=== PATIENT | male | born 1950 | race Two or more races ===

== ENCOUNTER 2017-08-21 18:37 | Inpatient (IN) | payer MEDICARE, MEDICAID ==
[~2017-08-21] VITALS: Ht 180.3 cm; Wt 83.0 kg
--- NOTE | 2017-08-21 18:59 | NUR ---
PATIENT IN ROOM 3. HE IS COOPERATIVE AND NON COMBATIVE AT THIS TIME.
--- NOTE | 2017-08-21 19:09 | NUR ---
Received report from SHAHANA Morales. Assumed care of pt at this time. Pt ambulated to and from with steady gait. Pt biba from facility for medical clearance prior to MHU admission. Pt already on a 5150 for gravely disabled.
[2017-08-21 19:29] LABS: BASOPHILS % (AUTO) 0.6 % (0.0-2.0); EOSINOPHILS # (AUTO) 0.2 K/uL (0.0-0.7); EOSINOPHILS % (AUTO) 3.2 % (0.0-7.0); HEMATOCRIT 47.6 % (40-50); HEMOGLOBIN 16.1 G/DL (14.0-18.0); LYMPHOCYTES # (AUTO) 1.2 K/UL (0.8-4.8); LYMPHOCYTES % (AUTO) 18.7 % (20.5-51.5); MEAN CORPUSCULAR HEMOGLOBIN 30.3 UUG (27.0-31.0); MEAN CORPUSCULAR HGB CONC 34 g/dL (32.0-37.0); MEAN CORPUSCULAR VOLUME 89.7 FL (82.0-92.0); MONOCYTES # (AUTO) 0.7 K/UL (0.1-1.30); MONOCYTES % (AUTO) 11.8 % (0.0-11.0); NEUTROPHILS # (AUTO) 4.2 K/UL (1.8-8.9); NEUTROPHILS % (AUTO) 65.7 % (38.5-71.5); PLATELET COUNT (AUTO) 150 K/UL (150-450); RED BLOOD CELL COUNT(AUTO) 5.31 MIL/UL (4.7-6.1); WHITE BLOOD COUNT (AUTO) 6.3 K/UL (4.0-11.2)
[2017-08-21 19:32] LABS: *BILIRUBIN,URIN NEGATIVE (NEGATIVE); *BLOOD, URINE NEGATIVE (NEGATIVE); *CLARITY,URINE CLEAR (CLEAR); *COLOR,URINE YELLOW (YELLOW); *KETONES,URINE NEGATIVE (NEGATIVE); *PROTEIN,URINE NEGATIVE (NEGATIVE); *UROBILINOGEN,URINE 0.2 E.U./dl (NORMAL); LEUKOCYTE ESTERASE ,URINE NEGATIVE (NEGATIVE); NITRITE, URINE NEGATIVE (NEGATIVE); UGLUCOSE NEGATIVE (NEGATIVE)
[2017-08-21 19:33] LABS: CARBON DIOXIDE 29 mmol/L (21-32); CHLORIDE 104 mmol/L (98-107); CREATININE 1.2 mg/dL (0.6-1.3); GLUCOSE 107 mg/dL (74-106); POTASSIUM 4.1 mmol/L (3.5-5.1); UREA NITROGEN, BLOOD 16 mg/dL (7-18)
[2017-08-21] MEDS ORDERED: ATOR20TA PO (19:35)
[2017-08-21] MEDS ORDERED: METO25TA6 PO (19:35)
[2017-08-21] MEDS ORDERED: FAMO-132 PO (19:35)
[2017-08-21] MEDS ORDERED: RISP0.2515 PO (19:35)
[2017-08-21] MEDS ORDERED: DIVA250T6 PO (19:35)
[2017-08-21] MEDS ORDERED: DONE10TA44 PO (19:35)
[2017-08-21] MEDS ORDERED: FOLI1TAB16 PO (19:35)
[2017-08-21] MEDS ORDERED: TRAZ-144 PO (19:35)
[2017-08-21] MEDS ORDERED: LISI10TA5 PO (19:35)
[2017-08-21 19:38] LABS: ALANINE AMINOTRANSFERASE 18 U/L (16-63); ALKALINE PHOSPHATASE 68 U/L (50-136); ASPARTATE AMINOTRANSFERASE 23 U/L (15-37); BILIRUBIN,DIRECT 0.1 mg/dL (0.0-0.2); BILIRUBIN,TOTAL 0.4 mg/dL (0.2-1.0); TOTAL PROTEIN, SERUM 7.5 g/dL (6.4-8.2)
[2017-08-21 19:50] LABS: ETHANOL < 3 MG/DL (0-0)
[2017-08-21 19:51] LABS: *AMPHETAMINE, URINE NEGATIVE (NEGATIVE); *BARBITURATE, URINE NEGATIVE (NEGATIVE); *CANNABINOID, URINE NEGATIVE (NEGATIVE); *COCCAINE, URINE NEGATIVE (NEGATIVE); *OPIATE, URINE NEGATIVE (NEGATIVE); *PHENCYCLIDINE SCREEN,URINE NEGATIVE (NEGATIVE)
[2017-08-21 19:53] LABS: WBC,URINE NONE SEEN /HPF (0-3)
--- NOTE | 2017-08-21 20:26 | NUR ---
Pt medically cleared for admission pt MHU. Report called to SHAHANA Rodriguez. Preparing to transfer pt to the floor
[2017-08-21] MEDS ORDERED: LORAZEPAM 0.5 MG TABLET PO PRN (21:15)
[2017-08-21] MEDS ORDERED: MAG HYDROX/AL HYDROX/SIMETH 30 ML LIQUID UDC PO PRN (21:15)
[2017-08-21] MEDS ORDERED: ACETAMINOPHEN 325 MG TABLET PO PRN (21:15)
[2017-08-21] MEDS ORDERED: TEMAZEPAM 7.5 MG CAPSULE PO PRN (21:15)
[2017-08-21] MEDS ORDERED: MAGNESIUM HYDROXIDE 30 ML LIQUID UDC PO PRN (21:15)
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
[2017-08-22 00:47] VITALS: BP 144/76
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
--- NOTE | 2017-08-22 07:13 | NUR ---
LEFT MESSAGE TO DR. ALLRED TO RECONCILED MEDICATION.
[2017-08-22 07:30] VITALS: BP 131/83
[2017-08-22] MEDS: METOPROLOL TARTRATE 25 MG TABLET PO SCH ×2 (10:29→20:28)
[2017-08-22] MEDS: FOLIC ACID 1 MG TABLET PO SCH (10:29)
[2017-08-22] MEDS: FAMOTIDINE 20 MG TABLET PO SCH ×2 (10:29→16:38)
[2017-08-22] MEDS: LISINOPRIL 10 MG TABLET PO SCH (10:30)
--- NOTE | 2017-08-22 12:27 | NUR ---
Initial DC Plan: Patient arrived from [facility] [[address] [place] [address]; ]. SW will follow up with facility to confirm patient can return upon discharge. SW will follow up with MD, patient, and patient's family to discuss most appropriate discharge plans. SW will form a safe and proper discharge.
--- NOTE | 2017-08-22 14:50 | NUR ---
PATIENT SEEN AND EXAMINED BY DR HOWARD WITH NEW ORDERS AND NOTED.
[2017-08-22 15:00] VITALS: BP 143/87
[2017-08-22] MEDS: DIVALPROEX 250 MG TABLET.DR PO SCH ×2 (15:02→20:27)
[2017-08-22] MEDS: risperiDONE 1 MG/ML UDC PO SCH ×2 (15:03→20:28)
--- NOTE | 2017-08-22 16:30 | NUR ---
PATIENT IS NOW IN THE DAY ROOM WATCHING THE TV QUIET AND CALM COMPLIANT WITH MEDICATIONS AND CARE.
[2017-08-22] MEDS: ATORVASTATIN 20 MG TABLET PO SCH (20:27)
[2017-08-22 20:46] VITALS: BP 129/90
--- NOTE | 2017-08-23 06:26 | NUR ---
GPS: REMAIN CALM AND COOPERATIVE WITH MEDICATION. SLEPT 8 HRS THROUGH THE NIGHT. CONTINUE PLAN OF CARE.
[2017-08-23 07:30] VITALS: BP 116/82
[2017-08-23] MEDS: METOPROLOL TARTRATE 25 MG TABLET PO SCH ×2 (09:00→20:08)
[2017-08-23] MEDS: DIVALPROEX 250 MG TABLET.DR PO SCH ×2 (09:26→20:07)
[2017-08-23] MEDS: FAMOTIDINE 20 MG TABLET PO SCH ×2 (09:26→18:16)
[2017-08-23] MEDS: FOLIC ACID 1 MG TABLET PO SCH (09:26)
[2017-08-23] MEDS: LISINOPRIL 10 MG TABLET PO SCH (09:26)
[2017-08-23] MEDS: risperiDONE 1 MG/ML UDC PO SCH ×2 (09:27→20:08)
[2017-08-23 15:00] VITALS: BP 127/70
[2017-08-23 19:52] VITALS: BP 108/73
[2017-08-23] MEDS: ATORVASTATIN 20 MG TABLET PO SCH (20:08)
[2017-08-24] MEDS: DIVALPROEX 250 MG TABLET.DR PO SCH ×2 (08:30→21:45)
[2017-08-24] MEDS: FOLIC ACID 1 MG TABLET PO SCH (08:30)
[2017-08-24] MEDS: METOPROLOL TARTRATE 25 MG TABLET PO SCH ×2 (08:31→21:46)
[2017-08-24] MEDS: FAMOTIDINE 20 MG TABLET PO SCH ×2 (08:31→17:36)
[2017-08-24] MEDS: LISINOPRIL 10 MG TABLET PO SCH (08:31)
[2017-08-24] MEDS: risperiDONE 1 MG/ML UDC PO SCH ×2 (08:32→21:45)
[2017-08-24 10:40] VITALS: BP 117/84
[2017-08-24 20:17] VITALS: BP 124/69
[2017-08-24] MEDS: ATORVASTATIN 20 MG TABLET PO SCH (21:46)
[2017-08-25 07:30] VITALS: BP 119/67
[2017-08-25] MEDS: METOPROLOL TARTRATE 25 MG TABLET PO SCH ×2 (09:00→20:55)
[2017-08-25] MEDS: risperiDONE 1 MG/ML UDC PO SCH ×2 (09:58→20:53)
[2017-08-25] MEDS: FOLIC ACID 1 MG TABLET PO SCH (09:58)
[2017-08-25] MEDS: LISINOPRIL 10 MG TABLET PO SCH (09:59)
[2017-08-25] MEDS: FAMOTIDINE 20 MG TABLET PO SCH ×2 (09:59→18:00)
[2017-08-25] MEDS: DIVALPROEX 250 MG TABLET.DR PO SCH ×2 (09:59→20:53)
[2017-08-25 16:47] VITALS: BP 100/70
[2017-08-25 19:50] VITALS: BP 108/81
[2017-08-25] MEDS: ATORVASTATIN 20 MG TABLET PO SCH (20:53)
--- NOTE | 2017-08-26 06:53 | NUR ---
GPS: REMAIN CALM AND COOPERATIVE. SLEPT 8 HRS THROUGH THE NIGHT.NO BEHAVIOR PROBLEM NOTED CONTINUE PLAN OF CARE.
[2017-08-26 07:30] VITALS: BP 126/81
[2017-08-26] MEDS: LISINOPRIL 10 MG TABLET PO SCH (08:51)
[2017-08-26] MEDS: DIVALPROEX 250 MG TABLET.DR PO SCH ×2 (08:51→20:09)
[2017-08-26] MEDS: FOLIC ACID 1 MG TABLET PO SCH (08:51)
[2017-08-26] MEDS: FAMOTIDINE 20 MG TABLET PO SCH ×2 (08:51→16:37)
[2017-08-26] MEDS: METOPROLOL TARTRATE 25 MG TABLET PO SCH ×2 (08:52→20:09)
[2017-08-26] MEDS: risperiDONE 1 MG/ML UDC PO SCH ×2 (08:55→20:07)
[2017-08-26] MEDS: CLOTRIMAZOLE 1% CREAM 30 GM TUBE TOP SCH (16:37)
[2017-08-26 16:49] VITALS: BP 114/80
[2017-08-26] MEDS: ATORVASTATIN 20 MG TABLET PO SCH (20:08)
[2017-08-26 21:16] VITALS: BP 142/83
[2017-08-27 07:30] VITALS: BP 134/86
[2017-08-27] MEDS: METOPROLOL TARTRATE 25 MG TABLET PO SCH ×2 (08:10→21:00)
[2017-08-27] MEDS: FAMOTIDINE 20 MG TABLET PO SCH ×2 (08:10→16:51)
[2017-08-27] MEDS: risperiDONE 1 MG/ML UDC PO SCH ×2 (08:10→20:00)
[2017-08-27] MEDS: FOLIC ACID 1 MG TABLET PO SCH (08:11)
[2017-08-27] MEDS: CLOTRIMAZOLE 1% CREAM 30 GM TUBE TOP SCH ×2 (08:11→16:51)
[2017-08-27] MEDS: DIVALPROEX 250 MG TABLET.DR PO SCH ×2 (08:11→20:00)
[2017-08-27] MEDS: LISINOPRIL 10 MG TABLET PO SCH (08:11)
[2017-08-27 15:59] VITALS: BP 119/83
[2017-08-27 19:55] VITALS: BP 105/72
[2017-08-27] MEDS: ATORVASTATIN 20 MG TABLET PO SCH (20:00)
--- NOTE | 2017-08-28 06:49 | NUR ---
patient slept for approx 7.30 hrs through the night. He is calm and cooperative; no behavioral probelms noted or reported during the shift;
[2017-08-28 07:30] VITALS: BP 104/67
[2017-08-28 08:07] LABS: BASOPHILS % (AUTO) 0.6 % (0.0-2.0); EOSINOPHILS # (AUTO) 0.3 K/uL (0.0-0.7); EOSINOPHILS % (AUTO) 4.6 % (0.0-7.0); HEMATOCRIT 45.6 % (36.7-47.1); LYMPHOCYTES # (AUTO) 1.3 K/uL (20.0-40.0); LYMPHOCYTES % (AUTO) 23.3 % (20.5-51.5); MEAN CORPUSCULAR HEMOGLOBIN 31.1 uug (23.8-33.4); MEAN CORPUSCULAR HGB CONC 35 g/dL (32.5-36.3); MEAN CORPUSCULAR VOLUME 88.9 fL (73.0-96.2); MONOCYTES # (AUTO) 0.6 K/uL (2.0-10.0); MONOCYTES % (AUTO) 11.8 % (0.0-11.0); NEUTROPHILS # (AUTO) 3.3 K/uL (1.8-8.9); NEUTROPHILS % (AUTO) 59.7 % (38.5-71.5); RED BLOOD CELL COUNT(AUTO) 5.13 MIL/uL (4.06-5.63); WHITE BLOOD COUNT (AUTO) 5.5 K/uL (3.6-10.2)
--- NOTE | 2017-08-28 08:13 | NUR ---
DC Note: Patient will be discharged to [facility] [[address] [place] [address]; ] via ambulance at 12pm. MELA spoke with Denisha at [facility] who confirmed discharge plans. SW spoke with patient's daughter Ivan [[phone]] who is aware and agreeable to discharge plans. Patient is aware and agreeable to discharge plans. Patient will follow up with Dr. Romero (Psychiatrist) and Dr. Boucher (Crew Lead).
[2017-08-28] MEDS: FAMOTIDINE 20 MG TABLET PO SCH (08:24)
[2017-08-28] MEDS: LISINOPRIL 10 MG TABLET PO SCH (08:24)
[2017-08-28] MEDS: risperiDONE 1 MG/ML UDC PO SCH (08:24)
[2017-08-28 08:25] VITALS: BP 104/67
[2017-08-28] MEDS: METOPROLOL TARTRATE 25 MG TABLET PO SCH (08:25)
[2017-08-28] MEDS: FOLIC ACID 1 MG TABLET PO SCH (08:25)
[2017-08-28] MEDS: DIVALPROEX 250 MG TABLET.DR PO SCH (08:25)
[2017-08-28 08:28] LABS: PLATELET COUNT (AUTO) 157 K/uL (152-348)
[2017-08-28] MEDS: CLOTRIMAZOLE 1% CREAM 30 GM TUBE TOP SCH (08:28)
[2017-08-28] MEDS ORDERED: MULTIVITAMINS,THERAPEUTIC TABLET PO SCH (09:00)
[2017-08-28] MEDS ORDERED: THIAMINE HCL 100 MG TABLET PO SCH (09:00)
[2017-08-28 09:29] LABS: BILIRUBIN,TOTAL 0.6 mg/dL (0.2-1.0); CREATININE 1.3 mg/dL (0.6-1.3); MAGNESIUM 2.1 mg/dL (1.8-2.4); PHOSPHOROUS 3.1 mg/dL (2.5-4.9); POTASSIUM 4.3 mmol/L (3.5-5.1); TOTAL PROTEIN, SERUM 6.8 g/dL (6.4-8.2)
--- NOTE | 2017-08-28 12:10 | NUR ---
Pt D/C to [facility] Via ambulance will be followed by Dr. Romero, and Dr. Boucher. Pt D/c with Exitcare packet, D/C paper work, prescriptions, all belongings and valuables. Pt is calm, cooperative, well groomed, appropriate, vitals signs stable, pt stable to D/C, skin is intact, and AOx3. Exit care packet given to front maker lockstitch.
== END 2017-08-28 12:00 | DRG 885 ==
LOC: ER 18:42 → GPS 20:41
PROVIDERS: ADMIT Psychiatry & Neurology Psychiatry; ATTEND Family Medicine
DX: F39 Unspecified mood [affective] disorder (principal); I11.9 Hypertensive heart disease without heart failure; E88.09 Other disorders of plasma-protein metabolism, not elsewhere classified; E03.9 Hypothyroidism, unspecified; I25.10 Atherosclerotic heart disease of native coronary artery without angina pectoris; B36.9 Superficial mycosis, unspecified; Z79.899 Other long term (current) drug therapy; Z95.2 Presence of prosthetic heart valve
CPT/HCPCS: 36415; 71010; 80307; 83735; 84100; 84443; 85025; 93005; A4663; G0480; J3490